=== PATIENT | male | born 1990 | race Two or more races ===

== ENCOUNTER 2018-07-29 04:34 | Emergency (ER) | payer OTHER ==
[~2018-07-29] VITALS: Ht 170.2 cm; Wt 72.6 kg
== END 2018-07-29 08:43 | disposition home or self-care (01) ==
LOC: ER 04:34
DX: K52.9 Noninfective gastroenteritis and colitis, unspecified (principal)

== ENCOUNTER 2022-03-09 06:28 | Outpatient (CLI) | payer OTHER | END 2022-03-09 06:29 | disposition home or self-care (01) | LOC: LAB 06:28 | PROVIDERS: ATTEND Obstetrics & Gynecology | DX: Z20.818 Contact with and (suspected) exposure to other bacterial communicable diseases (principal); Z20.828 Contact with and (suspected) exposure to other viral communicable diseases ==